=== PATIENT | female | born 1950 | race Caucasian/White ===

== ENCOUNTER 2016-07-15 06:17 | Day surgery (SDC) | payer OTHER ==
[2016-07-15] MEDS ORDERED: IV START KIT ONE (06:26)
[2016-07-15] MEDS ORDERED: LACTATED RINGERS 1,000 ML ONE (06:26)
[2016-07-15] MEDS ORDERED: LACTATED RINGERS 1,000 ML IV SCH (06:30)
[2016-07-15] MEDS ORDERED: FENTANYL 100 MCG/2 ML VIAL ONE (07:05)
[2016-07-15] MEDS ORDERED: PROPOFOL 20 ML IV ONE (08:06)
[2016-07-15] MEDS ORDERED: LIDOCAINE 2% (PRES FREE) 5 ML VIAL ONE (08:06)
[2016-07-15 11:57] LABS: HELICOBACTER PYLORII DETECTION NEGATIVE (NEGATIVE)
--- NOTE | 2016-07-19 13:15 | SURGPATH ---
[facility] [address] [place] [id number] Patient Name: BOBBY MUNIZ MR#: [id number] : 1950 Gender: F Specimen #: [id number] Collected: 07/15/2016 Received: 07/16/2016 Reported: 07/19/2016 Submitting Phys: CHICHO SHELLEY [facility] TIRSO HOLL[facility] Clinical History / Pre-Operative Diagnosis: nausea; epigastric pain; rule out Giardia, celiac sprue and gastritis Specimen Source / Surgical Procedure Performed: #1-duodenal biopsy; #2-antral biopsy Interpretation: 1. DUODENUM, BIOPSY: - NO PATHOLOGIC ABNORMALITY 2. ANTRUM, BIOPSY: - NO PATHOLOGIC ABNORMALITY Electronically Signed Out Spencer Camacho M.D. Gross Description: #1 The specimen is received in a formalin filled container labeled with the patient's name and "duodenal biopsy". Two quinn biopsies are each 0.3 cm. Totally embedded in cassette #1. #2 The specimen is received in a formalin filled container labeled with the patient's name and "antral biopsies". Two quinn biopsies are 0.3 and 0.5 cm. Totally embedded in cassette #2. Chase Milligan PBhaskar Microscopic Description: 1. Sections show normal duodenal mucosa. 2. Sections show normal gastric antrum. 1: 06288 2: 94190 R10.13
== END 2016-07-15 07:55 | disposition home or self-care (01) ==
LOC: SDC 06:17
PROVIDERS: ATTEND Internal Medicine Gastroenterology
PROC: 0DB98ZX Excision of Duodenum, Via Natural or Artificial Opening Endoscopic, Diagnostic (ICD-10-PCS; principal; 2016-07-15)
DX: K29.70 Gastritis, unspecified, without bleeding (principal); K29.80 Duodenitis without bleeding; F17.210 Nicotine dependence, cigarettes, uncomplicated; Z79.899 Other long term (current) drug therapy; Z88.8 Allergy status to other drugs, medicaments and biological substances
CPT/HCPCS: 43239; 87081; J3010; J7120